=== PATIENT | male | born 2000 | race Caucasian/White ===

== ENCOUNTER 2022-08-17 23:28 | Emergency (ER) | payer BC ==
[~2022-08-17] VITALS: Ht 165.1 cm; Wt 76.6 kg
[2022-08-17 23:42] VITALS: BP 158/93
[2022-08-17] MEDS ORDERED: FLUORESCEIN (FLUOR-I-STRIPS) 1 MG STRP ONE (23:48)
[2022-08-17] MEDS ORDERED: BSS 15 ML ONE (23:48)
[2022-08-17] MEDS ORDERED: TETRACAINE 0.5% OPHTH SOLN 4 ML BTL (SINGLE DOSE ONLY) ONE (23:48)
[2022-08-18] MEDS ORDERED: TETRACAINE 0.5% OPHTH SOLN 4 ML BTL (SINGLE DOSE ONLY) OU ONE
[2022-08-18] MEDS ORDERED: RX-OFLOXACIN 0.3% OPHTH SOLN 5 ML OP SCH
[2022-08-18] MEDS ORDERED: FLUORESCEIN (FLUOR-I-STRIPS) 1 MG STRP OU ONE
[2022-08-18] MEDS ORDERED: BSS 15 ML IR ONE
--- NOTE | 2022-08-18 00:01 | ED EENT ---
History of Present Illness General Chief Complaint: Eye Problems Stated Complaint: COMPRESSED AIR HIT RT EYE,PAINFUL Source: patient History of Present Illness Date Seen by Provider: August 17, 2022 Time Seen by Provider: 23:45 Initial Comments PT ARRIVES VIA POV WITH A MALE PT STATES AROUND 1300 THIS AFTERNOON, HE WAS AT WORK AT [employer], AND WAS FRAMING SOMETHING, USING A NAIL GUN, AND COMPRESSED AIR SHOT IN HIS RIGHT EYE. HE WAS NOT WEARING ANY EYE PROTECTION PT DOES NOT WEAR GLASSES OR CONTACTS C/O PAIN TO RIGHT EYE, BUT DOES NOT HAVE ANY FOREIGN BODY SENSATION HE STATES VISION IS SLIGHTLY BLURRY HE DENIES ANY PRIOR EYE PROBLEMS OR INJURIES PT STATES HE DID REPORT IT TO HIS EMPLOYER, BUT WAS NOT SENT HERE BY HIS E MPLOYER--STATES HIS EMPLOYER DOES NOT KNOW HE IS HERE. HE STATES HE SENT A TEXT TO HIS FAMILY DR, WHO TOLD HIM TO COME HERE. SYMPTOMS ARE NO DIFFERENT TONIGHT. PT IS A [employer] STUDENT FROM [place], [place], AND HIS FAMILY DR IS IN [place], [place]. HE STATES HIS LAST TETANUS VACCINE WAS IN 2021 Allergies and Home Medications Allergies Coded Allergies: No Known Drug Allergies (Unverified , 08/17/22) Patient Home Medication List Home Medication List Reviewed: Yes Review of Systems Review of Systems Constitutional: no symptoms reported Eyes: See HPI Skin: no symptoms reported Neurological: No Symptoms Reported Past Uelcjdn-Llzcvz-Vccwia Hx Patient Social History Tobacco Use?: No Use of E-Cig and/or Vaping dev: No Substance use?: No Alcohol Use?: Yes Alcohol Frequency: Once in a while Pt feels they are or have been: No Immunizations Up To Date Tetanus Booster (TDap): Less than 5yrs Influenza Vaccine Up-to-Date: No; Not Current Past Medical History Surgeries: Yes (HAND SURGERY) Orthopedic Respiratory: No Cardiac: No Neurological: No Genitourinary: No Gastrointestinal: No Musculoskeletal: Yes (HAND SURGERY) Endocrine: No HEENT: No Psychosocial: No Integumentary: No Blood Disorders: No Physical Exam Vital Signs Vital Signs - First Documented 08/17/22 23:42 Temp 36.6 Pulse 74 Resp 12 B/P (MAP) 158/93 (114) Pulse Ox 99 O2 Delivery Room Air Height, Weight, BMI Height: '" Weight: lbs. oz. kg; BMI Method: General Appearance: WD/WN, no apparent distress Eyes: right eye other (LEFT CONJUNCTIVA IS INFLAMED. NO DRAINAGE. NO WATERING OF THE EYE. NO FOREIGN BODY. NO OBVIOUS GLOBE INJURY. LIDS ARE NORMAL FLUORESCEIN STAIN SHOWS DYE UPTAKE AROUND THE 3:00 POSITION OF BOTH CORNEA AND CONJUNCTIVA IN A CIRCULAR PATTERN. NO HYPHEMA NOTED. NO SUBCONJUNCTIVAL HEMORRHAGE. ); left eye normal inspection Neurologic/Psychiatric: tray filler II-XII nml as tested, no motor/sensory deficits, alert, normal mood/affect, oriented x 3 Skin: normal color, warm/dry Procedures/Interventions Eye : Location: right eye Anesthesia (gtts): Tetracaine Progress/Procedure Conclusion + DYE UPTAKE OF CORNEA AND CONJUCTIVA IN A CIRCULAR PATTERN AROUND THE 3:00 POSITION. NO FOREIGN BODY NO OBVIOUS GLOBE INJURY NO HYPHEMA NOTED. Progress/Results/Core Measures Results/Orders My Orders Orders - ROSS MORAN DO Tetracaine 0.5% Ophth Antonietta Sdv (Tetracai (08/18/22 00:00) Fluorescein Strips ([id number]) (08/18/22 00:00) Balanced Salt Irrigation Soln (Bss Irrig (08/18/22 00:00) Fluorescein Strips ([id number]-[id number]) (08/17/22 23:48) Tetracaine 0.5% Ophth Antonietta Sdv (Tetracai (08/17/22 23:48) Balanced Salt Irrigation Soln (Bss Irrig (08/17/22 23:48) Rx-Ofloxacin 0.3% Ophth Soln (Rx-Ocuflox (08/18/22 00:00) Medications Given in ED Current Medications Medications Dose Ordered Sig/Juwan Route Start Time Stop Time Status Last Admin Dose Admin Balanced Salt Solution 15 ml ONCE ONCE IR 08/18/22 00:00 08/18/22 00:01 DC 08/17/22 23:49 15 ML Fluorescein Sodium 1 mg ONCE ONCE OU 08/18/22 00:00 08/18/22 00:01 DC 08/17/22 23:50 1 MG Tetracaine HCl 4 ml ONCE ONCE OU 08/18/22 00:00 08/18/22 00:01 DC 08/17/22 23:50 4 ML Vital Signs/I&O 08/17/22 23:42 Temp 36.6 Pulse 74 Resp 12 B/P (MAP) 158/93 (114) Pulse Ox 99 O2 Delivery Room Air Progress Progress Note : Progress Note DISCUSSED FINDINGS ON EYE EXAM, DISCUSSED NEED FOR FOLLOW UP, MEDICATIONS, ACTIVITY RESTRICTIONS, AND RETURN PRECAUTIONS. Departure Impression Primary Impression: Injury of conjunctiva and corneal abrasion of right eye w/o FB Additional Impression: EYE INJURY FROM COMPRESSED AIR Disposition: HOME, SELF-CARE Condition: Stable Departure-Patient Inst. Decision time for Depature: 23:59 Referrals: KIM LIAO OD NO,LOCAL PHYSICIAN (PCP) Primary Care Physician Patient Instructions: Corneal Abrasion (DC) Add. Discharge Instructions: DO NOT RUB EYE. NO DRIVING OR OPERATING ANY TOOLS OR EQUIPMENT UNTIL YOUR ARE CLEARED BY EYE DR. USE EYE DROPS PRESCRIBED YOU MAY TAKE TYLENOL AND MOTRIN NEEDED FOR PAIN FOLLOW UP WITH DR. LIAO'S OFFICE IN THE MORNING--CALL FIRST THING IN THE MORNING TO SCHEDULE AN APPOINTMENT. All discharge instructions reviewed with patient and/or family. Voiced understanding. Images Eye 1 - Abrasion, Dye uptake (fluorescein) ROSS MORAN DO August 18, 2022 00:01
[2022-08-18] MEDS ORDERED: OFLO5DRO8 OP (10:27)
== END 2022-08-18 00:27 | disposition home or self-care (01) ==
LOC: ER 23:38
DX: S05.01XA Injury of conjunctiva and corneal abrasion without foreign body, right eye, initial encounter (principal); Z28.311 Partially vaccinated for COVID-19; W29.4XXA Contact with nail gun, initial encounter
CPT/HCPCS: 99281